=== PATIENT | male | born 1950 | race Caucasian/White ===

== ENCOUNTER → 2024-09-22 | Outpatient (CLI) | payer MEDICARE, SELFPAY | END | disposition home or self-care (01) | LOC: PSN 12:05 | PROVIDERS: PCP Internal Medicine; Referring Provider Internal Medicine Cardiovascular Disease; Visit Provider Internal Medicine Cardiovascular Disease | DX: R00.1 Bradycardia, unspecified (principal) | CPT/HCPCS: 93225; 93226 ==

== ENCOUNTER → 2025-07-29 | Outpatient (CLI) | payer MEDICARE, SELFPAY ==
--- NOTE | 2025-07-29 15:26 | CT_ITS ---
PROCEDURE: BRAIN/HEAD WITHOUT CONTRAST 07/29/2025 REASON FOR EXAM: DOUBLE VISION, DIZZINESS TECHNIQUE: Procedure Code: CTBR Modality: CT Procedure: BRAIN/HEAD WITHOUT CONTRAST Coronal and Sagittal reconstruction series were provided. One or more dose reduction techniques were used (e.g., Automated exposure control, adjustment of the mA and/or kV according to patient size, use of iterative reconstruction technique. RADIATION DOSE SUMMARY: CTDlvol: 47.06 mGy DLP: 925.60 mGycm COMPARISON: None FINDINGS: Brain: Low density in the periventricular white matter suggests mild chronic small vessel ischemic changes. CSF Spaces: Mild generalized cerebral atrophy Sinuses/Mastoids: Partial opacification of the ethmoid sinuses as well as the right maxillary sinus. Bones: Unremarkable CT/Brain/Head without Contrast IMPRESSION: CHRONIC CHANGES. NO ACUTE FINDINGS. Partial opacification of the ethmoid sinuses as well as the right maxillary sin us. Reading Location: [id number]
--- OUTSIDE RECORDS SUMMARY | 2025-07-29 17:55 | XMS RPT_ITS | CCD ---
Author Organization [facility] ion Partnership [facility] Care Team Providers Care Soils Analyst Name Role Phone JOSE CARLSON Primary Care Physicia n JOSE CARLSON Attending Unava ilJOSE Montero Primary Care Unava iltash Galan Efewongbe Attending Unavailable Oleghe, Efewongbe Referring Unavailable Oleghe, Efewongbe Primary Care Unavailable Oleiselae Efewongbe Attending Unavailable Oleghe, Efewongbe Primary Care Unavailable Epifanio Bacon Attending Unavailable Epifanio Bacon Referring Unavailable Epifanio Bacon Attending Unavailable Epifanio Bacon Referring Unavailable Greere, Efewongbe Primary Care Unavailable Greere Efewongbe Referring Unavailable Epifanio Bacon Attending Unavailable Oleghe, Efewongbe Primary Care Unavailable Allergies Allergy Classification Reported Allergen(s) Allergy Type Date of Onset Reaction(s) Facility (1 source) Penicillin; Translations: [penicillin] Drug Allergy [facility] (1 source) Penicillin Drug Allergy 08-27-2024 [facility] Repository Medications Current Medications Medication Drug Class(es) Dates Sig (Normalized) Sig (Original) Ascorbic Acid (1 source) Vitamin C Start: 10-08-2019 Vitamin C Dose : 500 mg =, qDay, 0 Refill(s) Start Date: 10/08/19 Status: Ordered Calcium, Magnesium and Zinc oral tablet (1 source) Start: 10-08-2019 take 1 tablet by mouth once daily Calcium, Magnesium and Zinc oral tablet tab(s), Oral, qDay, 0 Refill(s) Start Date: 10/08/19 Status: Ordered Chondroitin Sulfates / Glucosamine (1 source) Start: 10-08-2019 Glucosamine Chondroitin Oral, qDay, 0 Refill(s) Start Date: 10/08/19 Status: Ordered ferrous sulfate 325 mg oral tablet (1 source) Start: 10-08-2019 IRON (ferrous sulfate 325 mg) 65 mg oral tablet Dose : 325 mg = 1 tab(s), Oral, qDay, Take with food.. Takes every other day, # 60 tab(s), 3 Refill(s) Start Date: 10/08/19 Status: Ordered Fish Oils (1 source) Start: 10-08-2019 take 1 mg by mouth twice daily Fish Oil 1000 mg oral capsule mg = cap(s), Oral, BID, 0 Refill(s) Start Date: 10/08/19 Status: Ordered herbal/nutritional product (1 source) Start: 10-08-2019 herbal/nutritional product Ginkoba 40mg one daily, 0 Refill(s) Start Date: 10/08/19 Status: Ordered Multivitamin preparation (1 source) Start: 10-08-2019 take 1 tablet by mouth once daily Multivitamin Dose = 1 tab(s), Oral, Daily, 0 Refill(s) Start Date: 10/08/19 Status: Ordered turmeric extract 500 mg oral capsule (1 source) Start: 10-08-2019 turmeric 500 mg oral capsule 0 Refill(s) Start Date: 10/08/19 Status: Ordered Problems Problem Classification Problem Date Documented Date Episodic/Chronic Abdominal hernia (1 source) Bilateral inguinal hernia 10-07-2019 Episodic Cardiac dysrhythmias (1 source) Bradycardia, unspecified; Translations: [Bradycardia, unspecified] Onset: 10-16-2024 Episodic Headache; including migraine (1 source) Migraine, unspecified, not intractable, without status migrainosus; Translations: [Migraine, unspecified, not intractable, without status migrainosus] Onset: 07-30-2024 Chronic Nonspecific chest pain (1 source) Chest pain 06-02-2021 Episodic Other ear and sense organ disorders (1 source) Lesion of external ear 12-26-2022 Episodic Other non-traumatic joint disorders (1 source) Pain in wrist 10-08-2019 Episodic Other nutritional; endocrine; and metabolic disorders (1 source) Gilbert's syndrome 10-07-2019 Chronic Other screening for suspected conditions (not mental disorders or infectious disease) (2 sources) Encounter for screening for malignant neoplasm of prostate; Translations: [Encounter for screening for cardiovascular disorders] Onset: 07-30-2024 Episodic Other skin disorders (1 source) [place] - lesion 12-26-2022 Episodic Other upper respiratory disease (1 source) Allergic rhinitis 10-07-2019 Chronic Residual codes; unclassified (1 source) Sleep apnea 10-07-2019 Chronic Residual codes; unclassified (1 source) Personal history of other specified conditions; Translations: [Personal history of other specified conditions] Onset: 08-27-2024 Episodic Unclassified (4 sources) Patient encounter status 10-08-2019 Results Test Name Value Interpretation Reference Range Facility 12 Lead EKG performed by [facility] on 08-27-2024 12 Lead EKG performed [place] [address] [place] [address] 12 Lead EKG performed by [facility] 08/27/24846 MR#: [id number] Acct: [id number] Name: OSMIN JAFFE Rep #: [id number] : 1950 74 From: Epifanio Bacon MD Attending Dr: Dr. Epifanio Bacon MD Status: DE P AMB Ordering Dr: Epifanio Bacon MD Date: 08/27/24 Location[place] [facility] [place] [facility] [place] Sex: M C Admitted: [facility]/12 Lead EKG performed by [facility] ECG Report Interpretation -------Sinus Bradycardia - Nonspecific T-abnormality. ABNORMAL Electronically signed on 08/27/2024 at 15:[address] Epifanio Bacon [employer] Version 8610 08/27/24 1543 Date Epifanio Bacon MD CC: Dr. Dani Galan MD Date Dictated: 08/27/24846 Date Transcribed: 08/27/24846 Pen Maker: Signed Normal [facility] Cardiology Visit Reporton Cardiology Visit Report [facility] [address] [place] [address] OFFICE VISIT Date of Service: 08/27/24 MR#: [id number] Acct: [id number] Name: OSMIN JAFFE Rep #: [id number] : 1950 Provider: Dr. Epifanio leal MD Age/Sex: 74/M Location: [facility] Status: Signed HPI HPI History of Present Illness Details: Patient is 74-year-old white male comes in today referred for new patient visit. The patient carries a history of longstanding bradycardia which she was diagnosed with early in his life heart rate easily runs in the 50 to 60 bpm range per the patient. The patient also has a history of sharp chest discomfort that has been going on for about 2 years he describes it as a sharp sticking sensation in his lower rib cage last 30 seconds and resolved spontaneously. It does not occur when he is exercising it usually occurs when he is at rest. 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 The patient has a family history of coronary disease but it was late in life his father at age 80 had bypass surgery he is not diabetic and does not have hypertension he does not have hyperlipidemia and he has never smoked. Patient's blood pressure in office today is 130/77 his heart rate is 54 and regular respiratory rate 16 and unlabored. EKG in office shows sinus bradycardia 53 bpm with minor nonspecific T wave changes in the anterior lateral leads. The patient had a stress test done June 2021 when he was having these chest discomforts. He did not have the chest pain on the treadmill it was read as negative for ischemia on the nuclear scan and he had very good exercise capacity. He had frequent PVCs noted during the stress that increased with activity and there was one 3 beat run noted. The patient has not had an event monitor or Holter to his knowledge. 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 Accompanied by: Self Is patient in pain?: No Allergies penicillin G Allergy (Mild, Verified 08/27/24 13:19) Hives Medications ???Medication ???Instructions ???Recorded ???Confirmed ???Type gingko biloba PO 07/30/24 08/27/24 History ascorbate calcium (vitamin C) 500 500 mg PO QDAY 07/30/24 08/27/24 History mg tablet calicium, magnesium/zinc PO 07/30/24 08/27/24 History ferrous sulfate 325 mg (65 mg 325 mg PO Q OTHER DAY 07/30/24 08/27/24 History iron) tablet (Feosol) fish oil PO 07/30/24 08/27/24 History glucosamine HCl 500 mg tablet 500 mg PO QDAY 07/30/24 08/27/24 History multivitamin (Daily Multi-Vitamin 1 tab PO QAM 07/30/24 08/27/24 History tablet) potassium gluconate 500 mg (83 mg) 650 mg PO QDAY 07/30/24 08/27/24 History tablet vitamin E PO 07/30/24 08/27/24 History magnesium PO DAILY 08/27/24 08/27/24 History Have you fallen in the past year?: No PFSH Medical History Health care maintenance History of chest pain Encounter to establish care Bradycardia Surgical History H/O hand surgery Family History Brother Alcoholism Uncle Cancer Myocardial infarction, Onset Age: 65 Father Parkinson disease Mother Respiratory abnormalities Social History adopted: No household members: spouse housing: house current occupational status: retired Smoking Status: Never smoker alcohol intake: current alcohol intake frequency: holidays/special occasions only substance use type: does not use what type of physical activity do you participate in: weight training seatbelt use: always do you feel safe at home: Yes ROS Const Const: Positive for headache(s) (Hx of migraines); Negative for fatigue, weakness or weight gain ENT ENT: Positive for headache(s) (Hx of migraines); Negative for dizziness, Nosebleed/epistaxis or balance problems Cardio Chest Pain: Yes Frequency: monthly Character: sharp Onset: at rest Location: left chest and right chest Duration: brief (30 sec) Palpitations: No Edema: None Muscle aches with walking: None Resp Respiratory: Negative for SOB with activity, SOB at rest or SOB orthopnea SOB lying down GI GI: Negative nausea, vomiting o (more content not included)... Normal [facility] Internal Medicine Office Vis ralph 07-30-2024 Internal Medicine Office Visit [facility] [address] [place] [address] [place] [address] OFFICE VISIT Date of Service: 07/30/24 MR#: [id number] Acct: [id number] Name: OSMIN JAFFE Rep #: [id number] : 1950 Provider: Dr. Dani sewell MD Age/Sex: 74/M Location: [facility] Status: Signed Intake Vital Signs 07/30/24 13:38 Height 5 ft 9 in Weight: 137 lb BMI 20.2 BP 128/64 H Blood Pressure Location Lt brachial Position Sitting Respiration 17 Pulse 56 L Pulse Source Monitor Temp 98.1 F Temp Source Temporal Pulse Oximetry (%) 96 Oxygen Delivery Method room air Intake Visit Reasons: EST NEW PT - PPW SENT Chief Complaint: EST NEW PT - PPW SENT Is patient in pain?: No Allergies penicillin G Allergy (Mild, Verified 07/30/24 13:36) Hives Medications ???Medication ???Instructions ???Recorded ???Confirmed ???Type gingko biloba PO 07/30/24 History ascorbate calcium (vitamin C) 500 500 mg PO QDAY 07/30/24 07/30/24 History mg tablet calicium, magnesium/zinc PO 07/30/24 07/30/24 History ferrous sulfate 325 mg (65 mg 325 mg PO Q OTHER DAY 07/30/24 07/30/24 History iron) tablet (Feosol) fish oil PO 07/30/24 History glucosamine HCl 500 mg tablet 500 mg PO QDAY 07/30/24 07/30/24 History multivitamin (Daily Multi-Vitamin 1 tab PO QAM 07/30/24 07/30/24 History tablet) potassium gluconate 500 mg (83 mg) 650 mg PO QDAY 07/30/24 07/30/24 History tablet vitamin E PO 07/30/24 History Have you fallen in the past year?: No Nurse's Note: pt reports he has chest pain 2 x/wk each episode lasts about 30 seconds ,had work up with previous PCP that did not show any issues PFSH Medical History (Updated 07/30/24 @ 14:[address] Dani Galan MD) Health care maintenance History of chest pain Encounter to establish care Bradycardia Family History (Updated 07/30/24 @ 13:24 by Caridad cAevedo LPN) Brother Alcoholism Uncle Cancer Myocardial infarction, Onset Age: 65 Father Parkinson disease Mother Respiratory abnormalities Social History (Updated 07/30/24 @ 13:38 by Caridad Acevedo LPN) adopted: No household members: spouse housing: house current occupational status: retired Smoking Status: Never smoker alcohol intake: current alcohol intake frequency: holidays/special occasions only substance use type: does not use what type of physical activity do you participate in: weight training seatbelt use: always do you feel safe at home: Yes HPI HPI Chief Complaint: EST NEW PT - PPW SENT Details: OSMIN JAFFE, is a 74 M who presents to the office today primarily to establish care. Also has some concerns. Over the last 2 years, he reports intermittent episodes of chest pain. Typically at rest and not with activity. Had workup done by his prior PCP including a stress test which came back negative/with no acute concerns. No shortness of breath. Family history of coronary artery bypass in his father at age 80. No tobacco or alcohol abuse. History of migraines, he states that he has about 1 episode a month. Currently not on any medication and typically rides through these episodes. Up-to-date with his age-appropriate screenings. Last colon cancer screening by [facility] was in 2021 and a 3-year follow-up was recommended. Last pneumonia vaccine was 2018, updated shingles vaccine and plans to get his COVID and flu shot at his local pharmacy soon. ROS Const Constitutional: No body ache, chills, excessive sweating, fatigue, fever(s), frequent falls, headache(s), snoring, weight change, sleep problems, abnormal sleep pattern or change in appetite Eyes Eyes: No blurry vision, change in vision, bulging eyes, floaters, eye pain or Light sensitivity ENT ENT: No abnormal hearing, ear or mastoid pain, tinnitus, balance problems, nosebleed/epistaxis , nasal congestion, headache(s), neck pain or sore throat Resp Respiratory: No cough, excessive phlegm production, pain on inspiration, shortness of breath, snoring or wheezing Cardio Cardiology: No chest pain at rest, chest pain with exertion, excessive sweating, shortness of breath, dyspnea on exertion, lightheadedness, orthopnea or palpitations Gastro GI: No abdominal pain, change in bowel habits, constipation, cramping, diarrhea, nausea/dyspepsia or vomiting Genitourinary Male: No burning urination, painful urination, urinary incontinence, urinary frequency, suprapubic fullness or side pain Musc Musculoskeletal: No abnormal gait, joint pain, back pain, limited range of motion, loss of height, muscle cramps, neck pain, numbness or tingling Skin Skin: No dry skin, redness, excessive hair growth, yellowing of the eye, lesions, itchy eyes, rash or wounds Neuro Neurology: No abnormal gait, abnormal hearing, behavioral changes, unsteady gait/balance, freque (more content not included)... Normal [facility] GLUon 12-28-2022 Glucose [Mass/Vol] 83 mg/dL Normal 83-110 [facility] ([place]) Comment on above: Performed By: #### G ESSENCE, LIPID, PSA #### [place] [address] LABORATORYOrdered By: Joyce Cavazos on 12-28-2022 Cholesterol [Mass/Vol] 150 mg/dL Invalid Interpretation Code 0 - 200 mg/dL AO ADM SS Cholesterol in HDL [Mass/Vol] 54 mg/dL Invalid Interpretation Code 40 - 60 mg/dL AO ADM SS Cholesterol in LDL [Mass/Vol] 89 mg/dL Invalid Interpretation Code 0 - 130 mg/dL AO ADM SS Triglyceride [Mass/Vol] 33 mg/dL Invalid Interpretation Code 0 - 150 mg/dL AO ADM SS LABORATORYOrdered By: SYSTEM SYSTEM on 12-28-2022 Glucose [Mass/Vol] 83 mg/dL Invalid Interpretation Code 83 - 110 mg/dL AO ADM SS Prostate specific Ag [Mass/Vol] 0.66 ng/mL Invalid Interpretation Code 0.00 - 4.00 ng/mL AO ADM SS LIPIDon 12-28-2022 Cholesterol [Mass/Vol] 150 mg/dL Normal 0-200 [facility] ([place]) Comment on above: Result Comment: Chol esterol Reference Interval: Less than 200 Desirable 200-239 Borderline high risk 240 and above High risk Performed By: #### G ESSENCE, LIPID, PSA #### [address] [address] Cholesterol in HDL [Mass/Vol] 54 mg/dL Normal 40-60 [facility] ([place]) Comment on above: Performed By: #### G ESSENCE, LIPID, PSA #### [address] [address] Cholesterol in LDL [Mass/Vol] 89 mg/dL Normal 0-130 [facility] ([place]) Comment on above: Performed By: #### Radha LOWRY, LIPID, PSA #### [address] [address] Triglyceride [Mass/Vol] 33 mg/dL Normal 0-150 [facility] ([place]) Comment on above: Result Comment: Trig lyceride Reference Interval: Less than 150 Normal 150-199 Borderline high risk 200-499 High risk 500 or higher Very high risk Performed By: #### G ESSENCE, LIPID, PSA #### [address] [address] PSAon 12-28-2022 Prostate Specific Antigen 0.66 ng/mL Normal 0.00-4.00 [facility] ([place]) Comment on above: Performed By: #### G ESSENCE, LIPID, PSA #### [address] [address] XR WRIST MINIMUM 3 VIEWS RIG HTon 10-09-2019 XR WRIST MINIMUM 3 VIEWS RIGHT ORIGINAL XR WRIST 3 VIEWS RIGHT CLINICAL STATEMENT: right wrist pain. Lateral wrist pain. Remote wrist injury. COMPARISON: None available. FINDINGS: No acute fracture or dislocation is identified. There is advanced joint space narrowing and degenerative change of the radiocarpal joint. Additionally, advanced degenerative change is noted of the 1st RIGHT carpometacarpal joint. Multiple carpal arcs are disrupted, compatible with stated history of remote wrist injury. There is no radiopaque foreign body. IMPRESSION: No acute fracture or dislocation. Advanced degenerative change of the carpus and radiocarpal joint. I have personally reviewed the images of this examination and agree with the resident's findings and interpretation. Interpreted By: Epifanio Cueva MD Preliminary Report By: Lucio Carlisle DO Electronically Signed By: Epifanio Cueva MD Dictated Date: 10/09/2019 7:51:58 AM Prelim Date: 10/09/2019 7:54:16 AM Sign Date: 10/09/2019 8:12:25 AM Ordering Provider:Jose Garcia [facility] ([place]) PSAon 10-08-2019 Prostate Specific Antigen 0.62 ng/mL Normal 0.00-4.00 [facility] ([place]) Comment on above: Performed By: #### P SA #### [place] [address] Encounters Encounter Date Encounter Type Care Provider Facility Start: 07-29-2025 ambulatory Efewwest halifax[facility] Oleiselae Facili ty:[facility] Start: 09-22-2024 [facility] Start: 09-22-2024 End: 09-22-2024 ambulatory Epifanio Bacon Facility:[facility] Start: 08-27-2024 End: [facility] Start: 07-30-2024 End: 07-30-2024 ambulatory [facility] Facility:[facility] Start: 12-28-2022 End: 12-29-2022 ambulatory JOSE CASILLAS DIGITAL EXPERIENCE MANAGER-DENTAL DIRECTOR Facility:B Start: 12-28-2022 End: 12-28-2022 Patient encounter procedure JOSE CASILLAS DIGITAL EXPERIENCE MANAGER-DENTAL DIRECTOR [facility] Procedures Date Procedure Procedure Detail Performing Clinician Start: 05-01-1993 Index finger structu re (body structure) JOSE CASILLAS DIGITAL EXPERIENCE MANAGER-DENTAL DIRECTOR Comment on above: right; lacerated ten don Start: 12-06-1983 Vasectomy JOSE WARDR DIGITAL EXPERIENCE MANAGER-DENTAL DIRECTOR Immunizations Immunization Date Immunization Notes Care Provider [facility] 08-10-2022 COVID-19, mRNA, LNP- S, bivalent booster, PF, 30 mcg/0.3 mL dose; Translations: [[employer] COVID-19 (12y+) Bivalent Booster Vaccine PF] JOSE CASILLAS DIGITAL EXPERIENCE MANAGER-DENTAL DIRECTOR [facility] 08-10-2022 influenza, high dose seasonal, preservative-free JOSE CASILLAS DIGITAL EXPERIENCE MANAGER-DENTAL DIRECTOR [facility] 11-07-2021 zoster vaccine recombinant JOSEDESHAWN CASILLAS DIGITAL EXPERIENCE MANAGER-DENTAL DIRECTOR [facility] 08-24-2021 COVID-19, mRNA, LNP- S, PF, 100 mcg or 50 mcg dose; Translations: [Moderna COVID-19 Vaccine] JOSE CASILLAS DIGITAL EXPERIENCE MANAGER-DENTAL DIRECTOR [facility] 08-03-2021 influenza, high dose seasonal, preservative-free; Translations: [Fluad Quadrivalent PF ] JOSE CASILLAS DIGITAL EXPERIENCE MANAGER-DENTAL DIRECTOR [facility] 06-03-2021 zoster vaccine recombinant JOSEDESHAWN CASILLAS DIGITAL EXPERIENCE MANAGER-DENTAL DIRECTOR [facility] 01-13-2021 SARS-CoV-2 (COVID-19 ) mRNA-1273 vaccine JOSE SONJA DIGITAL EXPERIENCE MANAGER-DENTAL DIRECTOR [facility] Comment on above: Result Comment: 2021: [id number] 12-16-2020 SARS-CoV-2 (COVID-19 ) mRNA-1273 vaccine JOSE SONJA DIGITAL EXPERIENCE MANAGER-DENTAL DIRECTOR [facility] Comment on above: Result Comment: 2021: [id number] 08-04-2020 influenza, injectabl e, quadrivalent, preservative free; Translations: [Fluarix PF Quadrivalent ] JOSE SONJA DIGITAL EXPERIENCE MANAGER-[facility] 09-10-2018 pneumococcal polysaccharide vaccine, 23 valent JOSE SONJA DIGITAL EXPERIENCE MANAGERGweepi MedicalDENTAL DIRECTOR [facility] 09-10-2017 pneumococcal conjuga te vaccine, 13 valent JOSE SONJA DIGITAL EXPERIENCE MANAGERGweepi MedicalDENTAL DIRECTOR [facility] 08-25-2014 tetanus toxoid, redu mary diphtheria toxoid, and acellular pertussis vaccine, adsorbed JOSE CHRISTIANSENMER DIGITAL EXPERIENCE MANAGERGweepi MedicalDENTAL DIRECTOR [facility] Payers Date Payer Category Payer Self-pay 2022 Private Health Insurance [id number] 1950 Unknown [id number] 2.16.8 [id number] Unknown [id number] 2.16.8 [id number] Unknown [id number] 2.16.8 [id number] Unknown [id number] 2.16.8 [id number] Unknown [id number] 2.16.8 [id number] Unknown [id number] 2.16.8 [id number] Social History Date Type Detail Facility Start: 10-08-2019 Tobacco smoking status Never s moked tobacco (finding) [facility] Comment on above: no smoke exposure Sex Assigned At Sex [facility] Evaluation + Plan note Note Date & Type Note Facility Evaluation + Plan note No data available for this section [facility] Hospital Discharge instructions Note Date & Type Note Facility Hospital Discharge instructions No data available for this section [facility] Progress note Note Date & Type Note Facility Progress note No data available for this section [facility] Summary Purpose Family History No Family History Records FoundNo Family History Records FoundNo Family History Records Found Advance Directives No Advanced Directives Records FoundNo Advanced Directives Records FoundNo Advanced Directives Records Found Additional Source Comments (unrecognized sect ion and content) No Status Records FoundNo Status Records FoundNo Status Records Found INFORMATION SOURCE (unrecogn ized section and content) DATE CREATED AUTHOR 10/09/2019 [facility] ([place]) DATE CREATED AUTHOR AUTHOR'S ORGANIZ ATION 01/02/2023 [facility] ([place]) DATE CREATED AUTHOR AUTHOR'S ORGANIZ ATION 10/19/2024 [facility] Patient Care team informatio n (unrecognized section and content) Care Team Personnel Name: JOSE CASILLAS APRN-DENTAL DIRECTOR Position: P4 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 This clinical summary was aggregated from multiple sources. Caution should be exercised in using it in the provision of clinical care. This summary normalizes information from multiple sources, and as a consequence, information in this document may materially change the coding, format and clinical context of patient data. In addition, data may be omitted in some cases. CLINICAL DECISIONS SHOULD BE BASED ON THE PRIMARY CLINICAL RECORDS. [employer] [facility]. provides no warranty or guarantee [id number] the accuracy or completeness of information in this document.
== END | disposition home or self-care (01) ==
LOC: CT 15:20
PROVIDERS: PCP Internal Medicine; Referring Provider Internal Medicine; Visit Provider Internal Medicine
DX: H53.2 Diplopia (principal); R42 Dizziness and giddiness
CPT/HCPCS: 70450

== ENCOUNTER → 2025-08-04 | Outpatient (CLI) | payer MEDICARE, SELFPAY ==
[2025-08-04 17:50] LABS: Hematocrit 39.4 % (40-54); Hemoglobin 13.3 g/dL (13.0-16.5); Immature Granulocytes Count 0.000 X10^3/uL (0.0-0.0); Mean Corp Hgb Conc 33.8 g/dL (32-36); Mean Corpuscular Volume 97.3 fL (80-94); Mean Platelet Vol. 10.8 fl (6.2-12.0); NRBC Flagged by Analyzer 0 % (0-5); Platelet Count 241 K/mm3 (150-450); RBC Distribution Width CV 12.0 % (11.6-14.6); RBC Distribution Width SD 43.2 fl (35.1-43.9); Red Blood Count 4.05 M/mm3 (4.6-6.2); White Blood Count 6.5 K/mm3 (4.4-11.0)
[2025-08-04 18:26] LABS: AST(SGOT) 36 U/L (<=37); Alanine Aminotransfer ALT/SGPT 38 U/L (<=46); Albumin, Serum 4.1 g/dL (3.4-4.8); Alkaline Phosphatase 74 U/L (40-129); Anion Gap 10 (5-15); BUN 22 mg/dL (4-19); BUN/Creat Ratio 28.6 RATIO (10-20); Calcium,Total 9.0 mg/dL (7.6-11.0); Carbon Dioxide 23.3 mmol/L (21.0-32.0); Chloride 105 mmol/L (98-108); Cholesterol 149 mg/dL (<=200); Globulin 2.6 g/dL (2.2-4.2); Glucose 96 mg/dL (70-99); Low Density Lipoprotein Calc. 86 mg/dL; PSA,Total - Annual Screen 0.77 ng/mL (0.02-4.00); Potassium 4.2 mmol/L (3.3-5.1); Triglycerides 68 mg/dL; Very Low Density Lipoprotein 14 mg/dL (5-40); cholesterol:hdl ratio screen 3.00
== END | disposition home or self-care (01) ==
LOC: MTLAB 15:43
PROVIDERS: PCP Internal Medicine; Referring Provider Internal Medicine; Visit Provider Internal Medicine
DX: G43.909 Migraine, unspecified, not intractable, without status migrainosus (principal); Z13.6 Encounter for screening for cardiovascular disorders; Z12.5 Encounter for screening for malignant neoplasm of prostate
CPT/HCPCS: 36415; 80053; 80061; 84153; 85025; G0103